=== PATIENT | male | born 1985 | race Caucasian/White ===

== ENCOUNTER 2016-04-22 05:33 | Emergency (ER) | payer OTHER ==
[~2016-04-22] VITALS: Ht 177.8 cm; Wt 92.7 kg
[2016-04-22] MEDS ORDERED: COLCHICINE 0.6 MG TAB PO ONE (06:15)
[2016-04-22] MEDS ORDERED: NAPROXEN 250 MG (NAPROSYN) TABLET PO ONE (06:15)
[2016-04-22 06:31] VITALS: BP 132/72
== END 2016-04-22 06:33 | disposition home or self-care (01) ==
LOC: ED 05:34
DX: M10.071 Idiopathic gout, right ankle and foot (principal)
CPT/HCPCS: 99282; 99283

== ENCOUNTER → 2016-07-08 | Outpatient (CLI) | payer OTHER ==
[~2016-07-08] MED LIST: ALLO100T PO; AZIT250T81 PO; BENZ-22 PO; COLC0.6T7 PO; IBUP-30 PO; INDO50CA PO; MAGN200T PO; NAPR500T3 PO; OMG1KC PO; OXYC1TAB87 PO; TRM50T PO; [UNRECOGNIZED DRUG - CODE] MC
--- NOTE | 2016-07-08 08:18 | Diagnostic Imaging Report ---
PROCEDURE: US abdomen complete. TECHNIQUE: Multiple real-time grayscale images were obtained over the abdomen in various projections. INDICATION: Abnormal liver function test. COMPARISON: None. DISCUSSION: Sonographic evaluation of the abdomen was performed. The liver parenchyma is echogenic, consistent with diffuse fatty infiltration. The liver is normal in size. No discrete liver mass identified. The gallbladder appears normal without evidence of cholelithiasis, wall thickening, or pericholecystic fluid. No evidence of intra or extrahepatic biliary duct dilatation. The common bile duct is normal measuring 0.3 cm. The pancreas appears normal as visualized. The spleen appears normal in echotexture and size measuring 12.7 cm. The visualized aorta and IVC appear within normal limits. The bilateral kidneys appear normal in echotexture and size without evidence of hydronephrosis or renal mass. The right kidney measures 8.7 cm. The left kidney measures 11 cm. There is no ascites or abnormal bowel loops identified. No sonographic Ordonez sign was reported. IMPRESSION: 1. Fatty infiltration of the liver. Dictated by: Dictated on workstation # [id number]
== END ==
LOC: RAD 07:18
PROVIDERS: ATTEND Family Medicine
DX: R74.0 Nonspecific elevation of levels of transaminase and lactic acid dehydrogenase [LDH] (principal); K76.0 Fatty (change of) liver, not elsewhere classified
CPT/HCPCS: 76700